=== PATIENT | female | born 1965 | race Asian ===

== ENCOUNTER → 2023-12-19 09:47 | Outpatient (CLI) | payer OTHER, SELFPAY ==
--- NOTE | 2023-12-19 | DI.RAD.S_ITS ---
PROCEDURE: FL UPPER GI SERIES INDICATIONS: GLOBUS SENSATION COMPARISON: None. 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 No suspicious abdominal calcifications. Visualized solid organ contours appear normal. Bony structures appear unremarkable. Esophagus: Esophageal mucosa is normal on air-contrast views. On single-contrast views, there is normal esophageal peristalsis. No strictures, extrinsic mass effects, or diverticula. Small sliding hiatal hernia is present. There is no ulceration or obstruction. Mild reflux was noted with Valsalva. There is normal transit of a calibrated barium tablet through the esophagus. Stomach: The stomach is normally distensible, with normal rugal fold thickness. No mucosal masses or ulcers. Pylorus and duodenal bulb appear normal in morphology. Duodenal folds are normal in thickness as well. IMPRESSION: Small sliding hiatal hernia with mild gastroesophageal reflux. Dictated by: Chi Dean M.D. on 12/19/2023 at 10:56 Approved by: Chi Dean M.D. on 12/19/2023 at 10:57
== END ==
PROVIDERS: PCP Student in an Organized Health Care Education/Training Program; Referring Provider Student in an Organized Health Care Education/Training Program; Visit Provider Student in an Organized Health Care Education/Training Program
DX: K44.9 Diaphragmatic hernia without obstruction or gangrene (principal); K21.9 Gastro-esophageal reflux disease without esophagitis; F45.8 Other somatoform disorders
CPT/HCPCS: 74240

== ENCOUNTER 2024-06-30 07:20 | Day surgery (SDC) | payer OTHER, SELFPAY ==
[2024-06-30] VITALS (7 sets, daily range): BP systolic 124–142; BP diastolic 74–94; PULSE 74–93; RESP 14–19; TEMP 36.1–36.5; O2SAT 97–98
--- NOTE | 2024-06-30 | PATH_ITS ---
[facility] Accession Number: [id number] No. of containers..01 Tissue . 01 Material submitted: . gastrointestinal site - GASTRIC POLYP . 01 Clinical history: . R/O HP . 01 Diagnosis: GASTRIC POLYP: Helicobacter pylori gastritis. No intestinal metaplasia, dysplasia, or malignancy identified. See comment. . Specimen Comments: The presence of chronic inflammation may correlate with a slight polypoid appearance on endoscopy. Clinical correlation is recommended. [facility] 07/05/20241206 Local . 01 Electronically signed: . Kayden Rodriguez MD, Pathologist NPI- [id number] . 01 Gross description: . Received in formalin with two patient identifiers and gastric polyp, are two dueñas soft tissue fragments 0.3 to 0.4 cm in greatest dimension. Submitted in cassette A1. ([id number]) /GRISELDA 07/05/20241206 Local . 01 Microscopic: . GASTRIC POLYP: An immunohistochemical stain was performed, revealing the presence of Helicobacter organisms. The control stains appropriately. * This test was developed and the performance characteristics were validated by [employer]. It has not been cleared or approved by the Food and Drug Administration. . 01 Pathologist provided ICD-10: B96.81 . 01 CPT . 341385, R80667 Specimen Comment: A courtesy copy of this report has been sent to [phone] Performed at: [address] [id number], [place], [place] [id number] MD Kayden Rodriguez MD Phone: [phone]
--- NOTE | 2024-06-30 08:24 | PM.HP.1 ---
History of Present Illness History of Present Illness [place] [facility] [place]: GE reflux with barium swallow showing small sliding hiatal hernia. Rule out esophagitis Meds Home Medications and Allergies Home Medications Medication Instructions Recorded Confirmed Type levothyroxine 125 mcg tablet mcg DAILY 06/30/24 History (Synthroid) Allergies Allergy/AdvReac Type Severity Reaction Status Date / Time aspirin Allergy Verified 06/30/24 08:10 Exam Vital Signs (past 8 hours): - 06/30/24 08:11 Temperature 97 F L Pulse Rate 88 Respiratory Rate 14 Blood Pressure 140/94 H Pulse Oximetry 97 Oxygen Delivery Method Room Air Oxygen Delivery Method Room Air Narrative Exam Narrative: Oropharynx free of lesions Chest clear to auscultation percussion Cardiac exam reveals no S3 or murmur Assessment & Plan Assessment & Plan narrative: Abnormal upper GI with small sliding hiatal hernia rule out esophagitis. Risks, benefits, alternatives have been explained. Time-Based Coding :: [TOTAL MINUTES] spent with patient and on the chart (including review of chart, obtaining history, exam, reviewing outside data, placing orders, documenting exam and treatment plan, and counseling patient) on [DATE].
--- NOTE | 2024-06-30 08:25 | PM.OP.EGD ---
Operative Date/Time/Diagnoses Date of procedure: 06/30/24 Pre-op diagnosis: See indication and findings Procedure & Clinicians Study performed: EGD Indications: Small sliding hiatal hernia on upper GI with possible worsening reflux symptoms Surgeon: Jasvir Walker Procedure Notes Procedure in detail: After informed consent was obtained the patient was placed in left lateral decubitus position. The EGD scope was placed into the oropharynx and with the patient's help swallowed into the esophagus. The esophagus stomach and duodenal were carefully examined. On withdrawal, retroflexed view the GE junction was performed. The scope was removed. The patient tolerated procedure well. Blood loss none Complications none Sedation mac Findings 1. No discernible hiatal hernia. No esophagitis. 2. Patchy gastric erythema biopsies taken to rule out Helicobacter Three. Minimal patchy erythema in the duodenal sweep, barely abnormal This the patient has been having very few symptoms for reflux since being scheduled I would not suggest placed scarring medications at this time. We will be in touch regarding her biopsies.
[2024-06-30] MEDS: LACTATED RINGERS 1,000 ML 42 ML IV (08:47)
== END 2024-06-30 09:32 | disposition home or self-care (01) ==
PROVIDERS: Referring Provider Internal Medicine Gastroenterology; Visit Provider Internal Medicine Gastroenterology
PROC: 0DJ08ZZ Inspection of Upper Intestinal Tract, Via Natural or Artificial Opening Endoscopic (ICD-10-PCS; CPT 43239; principal; 2024-06-30 08:30)
DX: K21.9 Gastro-esophageal reflux disease without esophagitis (principal); K29.70 Gastritis, unspecified, without bleeding; B96.81 Helicobacter pylori [H. pylori] as the cause of diseases classified elsewhere
CPT/HCPCS: 43239; J2704

== ENCOUNTER → 2024-10-25 14:16 | Outpatient (CLI) | payer OTHER, SELFPAY ==
[2024-10-27 13:36] LABS: Interpretation Negative (Negative)
== END ==
PROVIDERS: Internal Medicine Gastroenterology; Referring Provider Nurse Practitioner; Visit Provider Nurse Practitioner
DX: A04.8 Other specified bacterial intestinal infections (principal)
CPT/HCPCS: 83013